=== PATIENT | male | born 1980 | race Native Hawaiian/Other Pacific Islander ===

== ENCOUNTER 2022-01-10 08:32 | Outpatient (CLI) | payer OTHER | END 2022-01-10 20:29 | disposition home or self-care (01) | LOC: US 08:32 | PROVIDERS: ATTEND Physician Assistant | DX: K44.9 Diaphragmatic hernia without obstruction or gangrene (principal) ==

== ENCOUNTER 2022-02-01 08:53 | Outpatient (CLI) | payer OTHER | END 2022-02-01 19:09 | disposition home or self-care (01) | LOC: CT 08:53 | PROVIDERS: ATTEND Physician Assistant | DX: K44.9 Diaphragmatic hernia without obstruction or gangrene (principal) | CPT/HCPCS: 36415; 82565; 84520; Q9963 ==

== ENCOUNTER 2022-05-17 10:22 | Outpatient (CLI) | payer OTHER | END 2022-05-17 19:22 | disposition home or self-care (01) | LOC: LABW 10:22 | PROVIDERS: ATTEND Urology | DX: N20.0 Calculus of kidney (principal) | CPT/HCPCS: 84300; 84560 ==

== ENCOUNTER 2022-05-19 10:29 | Outpatient (CLI) | payer OTHER | END 2022-05-19 18:56 | disposition home or self-care (01) | LOC: LABW 10:29 | PROVIDERS: ATTEND Urology | DX: N20.0 Calculus of kidney (principal) | CPT/HCPCS: 82340; 82507; 83735; 83945 ==